=== PATIENT | male | born 1965 | race Caucasian/White ===

== ENCOUNTER 2021-11-13 18:29 | Emergency (ER) | payer BC, SELFPAY ==
[2021-11-13 18:31] VITALS: BP 140/70; PULSE 85; RESP 16; TEMP 36.8; O2SAT 100; BMI 28.5
--- NOTE | 2021-11-13 18:39 | XR_ITS ---
PROCEDURE INFORMATION: Exam: XR Left Foot Exam date and time: 11/13/2021 6:38 PM Age: 56 years old Clinical indication: Pain; Foot; Left; Additional info: Pain; [place] foot pop last ngiht TECHNIQUE: Imaging protocol: XR Left foot. Views: 3 or more views. Total images: 3 COMPARISON: No relevant prior studies available. FINDINGS: Bones/joints: Transverse fracture of the proximal metaphysis of the 5th metatarsal with about 2 mm displacement, located about 17 mm distal to the proximal styloid, concerning for a Colindres type fracture. Sclerosis and mild cortical contour irregularity with slight lateral bowing of the 4th metatarsal base suggests changes of old healed fracture in this region. Mild-moderate osteoarthritic changes in the 1st MTP joint with mild joint space narrowing and marginal spurring. Minor plantar calcaneal spurring. Soft tissues: Mild lateral soft tissue swelling. IMPRESSION: 1. Mildly displaced Colindres type fracture of the proximal 5th metatarsal. 2. Chronic appearing changes of old healed fracture in the proximal 4th metatarsal metadiaphysis. 3. Mild-moderate osteoarthritic changes in the 1st MTP joint.
[2021-11-13 18:57] VITALS: PULSE 85; RESP 16; TEMP 36.8; O2SAT 100; BMI 28.5
--- NOTE | 2021-11-13 19:09 | HMH.EDUTC ---
[facility] [place] Clinical Impression: Metatarsal bone fracture Qualifiers: Encounter type: initial encounter Metatarsal bone: fifth Fracture type: closed Fracture alignment: nondisplaced Laterality: left Qualified Code(s): S92.355A - Nondisplaced fracture of fifth metatarsal bone, left foot, initial encounter for closed fracture Disposition: Home, Self-Care Condition on Discharge: Good Instructions: How to Use Crutches, How To Perform RICE (Rest, Ice, Compress, Elevate), How to Use a Walking Boot Additional Instructions: *RICE, Rest the extremity, Ice 15-20 minutes 3-4 times daily, Compress- wear the zaire wrap as discussed as much as possible to help reduce swelling and pain, Elevate the extremity when at rest Use Crutches when getting up and walking around *Walking boot is for support and help control swelling, use it except in the shower. Be sure that is not to tight but not to loose either *Elevate when resting *Ibuprofen as directed on package every 6-8 hours as needed for pain an inflammation. If need something more can take Tylenol in between doses of Ibuprofen to help Immediately follow up with your family doctor for new or worsening of symptoms, or no noticeable improvement over the next 3-5 days Call Podiatry on Tuesday to make appointment Referrals: Provider,Referral, MD [Primary Care Provider] - As needed Brendon Francis DPM [Physician] - Jennifer Martinez APRN [Nurse Practitioner] - Mari Zimmerman DPM [Staff Physician] - Time of Disposition: 19:37 Medical Decision Making - Viktor Inquiry Pt receiving controlled substance: No Viktor was queried for this patient: No Vital Signs: 11/13/21 18:31 11/13/21 18:57 Temperature 98.3 F 98.3 F Temperature Source Oral Oral Pulse Rate [Right] 85 85 Respiratory Rate 16 16 Blood Pressure [Right Arm] 140/70 Blood Pressure Mean [Right Arm] 93 Blood Pressure Source [Right Arm] Automatic Cuff Blood Pressure Position [Right Arm] Sitting 02 Sat by Pulse Oximetry 100 100 Oxygen Delivery Method Room Air Orders (Tests/Meds): ORDERS Category Date Time Status Foot XR left minimum 3 views [XR foot LT min 3V] Stat Exams 11/13/21 18:39 Taken - Radiology Data #1 Image(s): Foot/Toes Image Reviewed: Yes I reviewed the patient's radiology image fracture base of 5th metatarsal - Physician Consults Physician Consulted: Dr Ely Time: 19:13 Reason -: Orthopedic Eval/Care Comment/Response: awaiting call back Spoke with Dr Ely and he advised to place in walking boot, crutches and can follow up with Podiatry [facility] [place] - General Stated complaint: left foot pain, no accident Time Seen by Provider: 11/13/21 19:10 Mode of Arrival: Ambulatory Source of Information: Patient Limitations: No Limitations Description of Symptoms (Recalled from Triage Doc. by RN): pt advises he was walking across the floor last night when he left foot popped and he has been having pain ever since. Advises he has broke that foot before almost in the same fashion HEENT Symptoms (Recalled from RN notes): No Resp Symptoms (Recalled from RN notes): No Skin Symptoms (Recalled from RN notes): No MS Symptoms (Recalled from RN notes): Yes Functional Status (Recalled from RN notes): wnl - History of Present Illness Provider Complaint: Patient states that he was walking across the kitchen floor last night when he felt a pop in the side of his left foot States that he immediately started having pain States that he did this a few years back and it was broken States that ever since he has been having pain and swelling in his foot and hurts when he walks on it - Related Data Allergies Allergy/AdvReac Type Severity Reaction Status Date / Time No Known Allergies Allergy Verified 11/13/21 18:39 - Worker's Comp Is this a Worker's Comp case?: No [facility] History - Hepatitis A Screen Drug use history?: No High risk sexual behaviors?: No History of sexually transmitted infection?: No Curren
[2021-11-13 19:42] VITALS: BP 140/70; PULSE 85; RESP 16; TEMP 36.8
== END 2021-11-13 19:42 | disposition home or self-care (01) ==
LOC: ER 18:43 → UTC 18:44
PROVIDERS: Emergency Provider Nurse Practitioner
DX: S92.355A Nondisplaced fracture of fifth metatarsal bone, left foot, initial encounter for closed fracture (principal); W01.0XXA Fall on same level from slipping, tripping and stumbling without subsequent striking against object, initial encounter
CPT/HCPCS: 29515; 73630; 99212; G0463

== ENCOUNTER → 2021-11-17 08:58 | Outpatient (CLI) | payer BC, SELFPAY ==
--- NOTE | 2021-11-17 09:17 | CT_ITS ---
FINAL REPORT CLINICAL HISTORY: fracture evaluation, surgical planning FINDINGS: CT LEFT FOOT WITHOUT CONTRAST Technique: Axial images through the left foot were performed by computed tomography. Sagittal and coronal reconstruction images were performed. This study was performed with techniques to keep radiation doses as low as reasonably achievable (ALARA). Individualized dose reduction techniques using automated exposure control or adjustment of mA and/or kV according to the patient's size were employed. There is a transverse fracture through the base of the 5th metatarsal. There is no intra-articular extension. There is old healed fracture deformity of the base of the 4th metatarsal. No dislocation identified. There are [id number] hypertrophic changes at the 1st MTP joint. There is soft tissue edema over the dorsum of the foot up to 1.5 cm. IMPRESSION: Transverse fracture through the base of the 5th metatarsal without intra-articular extension. Reviewed, Interpreted and Dictated by Steve Guadalupe MD Transcribed by Ramiro Zaidi Authenticated by Steve Guadalupe MD on 11/17/2021 02:13:16 PM [facility]
[2021-11-17 09:27] LABS: Basophils # 0.1 K/mm3 (0-0.2); Basophils % 0.6 % (0.1-2.0); Eosinophils # 0.1 K/mm3 (0.0-0.4); Eosinophils % 0.8 % (0.1-12.0); Hematocrit 44.1 % (42.0-52.0); Hemoglobin 14.8 g/dL (14.1-18.0); Lymphocytes # 1.5 K/mm3 (0.7-4.5); Lymphocytes % 17.2 % (10-50); Mean Corpuscular HGB Conc 33.6 g/dL (31.8-35.4); Mean Corpuscular Hemoglobin 30.1 pg (27.0-31.2); Mean Corpuscular Volume 89.7 fl (80-94); Mean Platelet Volume 7.6 fl (7.4-10.4); Monocytes # 0.5 K/mm3 (0.1-1.0); Neutrophils # 6.8 K/mm3 (1.8-7.8); Neutrophils % 76.4 % (37.0-80.0); Platelet Count 308 K/mm3 (142-424); Red Blood Count 4.91 M/mm3 (4.60-6.20); Red Cell Distribution Width 13.9 % (11.5-17.5); White Blood Count 8.9 K/mm3 (4.8-10.8)
[2021-11-17 09:57] LABS: Chloride 104 mmol/L (98-107); Sodium 138 mmol/L (136-145)
[2021-11-17 09:58] LABS: Potassium 4.7 mmoL/L (3.5-5.1)
[2021-11-17 10:00] LABS: Alanine Aminotransferase 27 U/L (12-78); Albumin Level 3.7 g/dl (3.5-5.0); Albumin/Globulin Ratio 1.6 (1.1-1.8); Alkaline Phosphatase 104 U/L (38-126); Anion Gap 9.7 mEq/L (5-15); Aspartate Amino Transferase 19 U/L (17-59); Bilirubin,Total 0.5 mg/dl (0.2-1.3); Blood Urea Nitrogen 13 mg/dl (9-20); Calcium 8.4 mg/dl (8.4-10.2); Carbon Dioxide 29 mmol/L (22.0-30.0); Estimated Glomerular Filt Rate 118 ml/min (>60); GFR (African American) 142 ML/MIN (>60); Globulin 2.3 g/dL (1.3-3.2); Glucose 324 mg/dl (74-100)
== END ==
PROVIDERS: PCP Pediatrics; Visit Provider Podiatrist
DX: S92.302A Fracture of unspecified metatarsal bone(s), left foot, initial encounter for closed fracture (principal); T14.8XXA Other injury of unspecified body region, initial encounter
CPT/HCPCS: 36415; 73700; 80053; 85025

== ENCOUNTER 2022-05-29 14:41 | Emergency (ER) | payer BC, SELFPAY ==
[2022-05-29] VITALS (10 sets, daily range): BP systolic 135–170; BP diastolic 67–83; PULSE 82–90; RESP 17–18; TEMP 36.7–36.8; O2SAT 94–98; BMI 25.1
--- NOTE | 2022-05-29 15:19 | PC.NURSE ---
ED MD AT BEDSIDE FOR EVALUATION
--- NOTE | 2022-05-29 15:22 | CT_ITS ---
PROCEDURE INFORMATION: Exam: CT Lumbar Spine Without Contrast Exam date and time: 05/29/2022 3:36 PM Age: 56 years old Clinical indication: Injury or trauma; Fall; Blunt trauma (contusions or hematomas); Additional info: Log fell on patient's back TECHNIQUE: Imaging protocol: Computed tomography of the lumbar spine without contrast. Radiation optimization: All CT scans at this facility use at least one of these dose optimization techniques: automated exposure control; mA and/or kV adjustment per patient size (includes targeted exams where dose is matched to clinical indication); or iterative reconstruction. COMPARISON: CT THORACIC SPINE WO CON 05/29/2022 3:32 PM FINDINGS: Tubes, catheters and devices: No marker has been placed indicate region of trauma. Bones/joints: Lumbar spondylosis. Soft tissues: Unremarkable. IMPRESSION: 1. No evidence of acute osseous injury in the lumbar spine. 2. Lumbar spondylosis.
--- NOTE | 2022-05-29 15:22 | CT_ITS ---
PROCEDURE INFORMATION: Exam: CT Chest With Contrast; Diagnostic Exam date and time: 05/29/2022 3:45 PM Age: 56 years old Clinical indication: Injury or trauma; Fall; Blunt trauma (contusions or hematomas); Additional info: Log fell on patient's back TECHNIQUE: Imaging protocol: Diagnostic computed tomography of the chest with contrast. Radiation optimization: All CT scans at this facility use at least one of these dose optimization techniques: automated exposure control; mA and/or kV adjustment per patient size (includes targeted exams where dose is matched to clinical indication); or iterative reconstruction. Contrast material: ISOVUE; Contrast volume: 70 ml; Contrast route: IV; COMPARISON: CT THORACIC SPINE WO CON 05/29/2022 3:32 PM FINDINGS: Thyroid: Mild prominence of the thyroid gland. No discrete nodule demonstrated. Lungs: Minimal regions of subsegmental atelectasis at the left lung base. Patchy regions of opacification in the lingula and left lung base. Pleural spaces: Unremarkable. No pneumothorax. No pleural effusion. Heart: Coronary artery calcification. Lymph nodes: Unremarkable. No enlarged lymph nodes. Vasculature: Unremarkable. No aortic aneurysm. Liver: Hepatic steatosis. Gallbladder and bile ducts: Cholelithiasis. Spleen: Mild splenomegaly. Bones/joints: Incomplete visualization of posterior spinal fusion at T1 and T2. Nondisplaced fracture left 7th, 8th and 9th ribs again demonstrated. Soft tissues: Unremarkable. Other findings: Please see CT thoracic spine report for further discussion. IMPRESSION: 1. Nondisplaced fracture left 7th, 8th and 9th ribs again demonstrated. 2. Minimal regions of subsegmental atelectasis left lung base. Superimposed patchy regions of opacification involving the lingula and left lung base.
--- NOTE | 2022-05-29 15:22 | CT_ITS ---
PROCEDURE INFORMATION: Exam: CT Thoracic Spine Without Contrast Exam date and time: 05/29/2022 3:32 PM Age: 56 years old Clinical indication: Injury or trauma; Fall; Blunt trauma (contusions or hematomas); Additional info: Log fell on patient's back TECHNIQUE: Imaging protocol: Computed tomography of the thoracic spine without contrast. Radiation optimization: All CT scans at this facility use at least one of these dose optimization techniques: automated exposure control; mA and/or kV adjustment per patient size (includes targeted exams where dose is matched to clinical indication); or iterative reconstruction. COMPARISON: No relevant prior studies available. FINDINGS: Bones/joints: Nondisplaced fracture left 7th, 8th and 9th ribs. Irregularity of the right T11-12 articular facet. Findings compatible with fracture. Irregularity of the right T12-L1 articulating facet. A fracture in this region is suggested. Soft tissues: Unremarkable. Other findings: Findings demonstrated on series 3, image number 111) . IMPRESSION: 1. Nondisplaced fracture left 7th, 8th and 9th ribs. 2. Irregularity of the right T11-12 articular facet. Findings compatible with fracture. 3. Irregularity of the right T12-L1 articulating facet. A fracture in this region is suggested.
--- NOTE | 2022-05-29 15:25 | HMH.EDGENADL ---
Discharge Plan Disposition Patient Disposition: Home, Self-Care Condition: Fair Prescriptions Prescriptions: New levofloxacin 500 mg tablet 500 mg PO DAILY 7 Days Qty: 7 0RF oxycodone-acetaminophen [Percocet] 5-325 mg tablet 1 tab PO Q6H PRN (Reason: pain) Qty: 20 0RF oxycodone 5 mg capsule 5 mg PO Q6H PRN (Reason: pain) Qty: 20 0RF No Action omeprazole 20 mg capsule,delayed release(DR/EC) 20 mg PO Trulicity 3 mg/0.5 mL pen injector SQ Humulin 70/30 U-100 KwikPen 100 unit/mL (70-30) insulin pen SQ Referrals Follow up/Referrals: Provider,Referral, MD [Primary Care Provider] - See instructions Activity Restrictions/Add. Instructions Additional Instructions/Restrictions: Oxycodone as needed for pain. Antibiotic, Levaquin, as prescribed. Fill your prescription for Trulicity on Tuesday and begin taking. Follow-up with your primary care provider next week, call Tuesday to make appointment. Additional instructions for RIB INJURIES: See your physician as soon as possible for further evaluation. Hold a pillow against your injured ribs to help with pain when coughing or sneezing. Sleep with several pillows to help support you in the most comfortable position. Take deep breaths frequently. Use incentive spirometer 4-5 times a day. Return immediately if shortness of breath, intolerable pain, coughing of blood, abdominal pain or vomiting. Additional instructions for PNEUMONIA: Take antibiotics as prescribed. See your physician as soon as possible for further evaluation. Return immediately if you have an uncontrollable fever greater than 102 degrees, difficulty breathing or shortness of breath, persistent vomiting, or severe chest pain. Additional instructions for CONTROLLED SUBSTANCES: You have been prescribed a medication that is a controlled substance. Controlled substances include pain medications known as opiates and sedative nerve medications known as benzodiazepines. Tramadol, fioricet, and gabapentin are also controlled substances. Some common opiates include: Codeine (such as Tylenol #3) Hydrocodone (Vicodin, Lortab, Lorcet, [place]) Oxycodone (Percocet, Percodan, Oxycodone, Oxy IR) Some common benzodiazepines include: Diazepam (Valium) Lorazepam (Ativan) Alprazolam (Xanax) Clonazepam (Klonopin) Oxazepam (Serax) All of these controlled substances are highly addictive and frequently abused. Misuse can and frequently does lead to addiction as well as overdose and . Medication should be stored in a locked cabinet or other secure storage unit. Do not store the medication in a motor vehicle. Short term supplies, 3 days or less, are prescribed because of the highly addictive nature of the medication. Any of the controlled substance medication NOT taken should be disposed of properly and NOT SAVED. The recommended method of disposing of unused medications is: Place the medicines in a sealable plastic bag. If the medicine is a solid, crush it or add water to dissolve it. Add something undesirable (cat litter, coffee grounds, etc.) Dispose of sealed bag in household trash Do not flush or pour unused medicines down a sink or drain. Controlled substances should not be shared, given away or sold. Because of the addictive nature and frequent abuse, these medications are sometimes stolen. These medications should be kept in a safe place where they cannot be stolen. Do not keep them in your car or purse. Lost or stolen prescriptions for controlled substances WILL NOT BE REFILLED in this emergency department, regardless of whether a police report was filed. Clinical Impressions Clinical Impression: Multiple fractures of ribs, Thoracic vertebral fracture, Acute hyperglycemia, Pneumonia Instructions Patient Instructions: DI for Vertebral Fracture, DI for Rib Fracture, DI for Hyperglycemia -- Adult, DI for Pneumonia -- Adult
--- NOTE | 2022-05-29 15:29 | PC.NURSE ---
PT TO CT AT THIS TIME
[2022-05-29 15:36] LABS: Basophils # 0.1 K/mm3 (0-0.2); Basophils % 0.5 % (0.1-2.0); Eosinophils # 0.1 K/mm3 (0.0-0.4); Eosinophils % 0.5 % (0.1-12.0); Hematocrit 41.4 % (42.0-52.0); Hemoglobin 13.9 g/dL (14.1-18.0); Lymphocytes # 0.9 K/mm3 (0.7-4.5); Lymphocytes % 8.7 % (10-50); Mean Corpuscular HGB Conc 33.6 g/dL (31.8-35.4); Mean Corpuscular Hemoglobin 31.2 pg (27.0-31.2); Mean Corpuscular Volume 92.8 fl (80-94); Mean Platelet Volume 8.5 fl (7.4-10.4); Monocytes # 0.5 K/mm3 (0.1-1.0); Neutrophils # 8.4 K/mm3 (1.8-7.8); Neutrophils % 85.4 % (37.0-80.0); Platelet Count 198 K/mm3 (142-424); Red Blood Count 4.46 M/mm3 (4.60-6.20); White Blood Count 9.8 K/mm3 (4.8-10.8)
[2022-05-29 15:38] LABS: MANUAL DIFFERENTIAL MANUAL DIFFERENTIAL (MANUAL DIFF)
[2022-05-29 15:39] LABS: Chloride 96 mmol/L (98-107); Potassium 4.6 mmoL/L (3.5-5.1); Sodium 130 mmol/L (136-145)
[2022-05-29 15:42] LABS: Anion Gap 15.6 mEq/L (5-15); Blood Urea Nitrogen 22 mg/dl (9-20); Calcium 8.1 mg/dl (8.4-10.2); Carbon Dioxide 23 mmol/L (22.0-30.0); Creatinine Clearance Estimated 105 mL/min (50-200); Estimated Glomerular Filt Rate 88 ml/min (>60); GFR (African American) 106 ML/MIN (>60)
[2022-05-29 15:52] LABS: Glucose 652 mg/dl (74-100)
--- NOTE | 2022-05-29 15:52 | PC.NURSE ---
notified of glucose of 652
--- NOTE | 2022-05-29 15:57 | PC.NURSE ---
PT RETURNED FROM CT AT THIS TIME
--- NOTE | 2022-05-29 15:58 | PC.NURSE ---
PT ASSISTED TO BR
--- NOTE | 2022-05-29 16:13 | PC.NURSE ---
PT MEDICATED PER EMAR, WARM BLANKET PROVIDED. FAMILY AT BEDSIDE
[2022-05-29 16:20] LABS: Lymphocytes % 6 % (10-50); Monocytes % 6 % (2-9); Neutrophils % 88 % (42-76); Tear Drop Cells 1+; Total Cells Counted 100
[2022-05-29 16:21] LABS: Platelet Estimate Normal
--- NOTE | 2022-05-29 16:45 | PC.NURSE ---
ROUNDED ON PT AT THIS TIME, FAMILY AT BEDSIDE
--- NOTE | 2022-05-29 17:20 | PC.NURSE ---
PT SITTING ON SIDE OF BED TALKING ON PHONE, NO NEEDS AT THIS TIME. FAMILY AT BEDSIDE
--- NOTE | 2022-05-29 17:55 | PC.NURSE ---
DIABETIC SUPPER TRAY ORDERED AT THIS TIME
--- NOTE | 2022-05-29 17:58 | PC.NURSE ---
FSBS 368
[2022-05-29 18:03] LABS: POC Glucose,Bedside 368 (70-110)
--- NOTE | 2022-05-29 18:26 | PC.NURSE ---
DR. ACUÑA AT BEDSIDE TO REEVALUATE PT
--- NOTE | 2022-05-29 18:47 | PC.NURSE ---
SUPPER TRAY SET-UP AT THIS TIME
--- NOTE | 2022-05-29 19:05 | PC.NURSE ---
PT GIVEN INCENTIVE SPIROMETER AND PROPER USAGE DEMONSTRATED
== END 2022-05-29 19:20 | disposition home or self-care (01) ==
PROVIDERS: Emergency Provider Emergency Medicine
DX: S22.42XA Multiple fractures of ribs, left side, initial encounter for closed fracture (principal); S22.089A Unspecified fracture of T11-T12 vertebra, initial encounter for closed fracture; M54.9 Dorsalgia, unspecified; R20.2 Paresthesia of skin; E11.65 Type 2 diabetes mellitus with hyperglycemia; R16.1 Splenomegaly, not elsewhere classified; M47.896 Other spondylosis, lumbar region; K76.0 Fatty (change of) liver, not elsewhere classified; K80.20 Calculus of gallbladder without cholecystitis without obstruction; F17.210 Nicotine dependence, cigarettes, uncomplicated; Z79.4 Long term (current) use of insulin; Z79.899 Other long term (current) drug therapy; Z98.1 Arthrodesis status; Z87.01 Personal history of pneumonia (recurrent); W20.8XXA Other cause of strike by thrown, projected or falling object, initial encounter
CPT/HCPCS: 71260; 72128; 72131; 80048; 82962; 85007; 85025; 96361; 96374; 96375; 96376; 99285; J1956; J2405

== ENCOUNTER 2022-12-21 21:18 | Emergency (ER) | payer BC, SELFPAY ==
[2022-12-21 21:18] VITALS: BP 104/61; PULSE 97; RESP 16; TEMP 37.2; O2SAT 98; BMI 23.6
[2022-12-21 21:22] VITALS: BMI 23.6
--- NOTE | 2022-12-21 21:23 | XR_ITS ---
PROCEDURE INFORMATION: Exam: XR Chest Exam date and time: 12/21/2022 9:22 PM Age: 57 years old Clinical indication: Other: N/v/d TECHNIQUE: Imaging protocol: Radiologic exam of the chest. Views: 2 views. COMPARISON: CT CHEST W CON 05/29/2022 3:45 PM FINDINGS: Lungs: Unremarkable. No consolidation. Pleural spaces: Unremarkable. No pleural effusion. No pneumothorax. Heart/Mediastinum: Unremarkable. No cardiomegaly. Bones/joints: Partially visualized posterior cervical spinal fusion hardware. Mild multilevel degenerative disc disease of the thoracic spine. IMPRESSION: No acute abnormality.
--- NOTE | 2022-12-21 21:30 | PC.NURSE ---
Pt gone to RAD via wheelchair
--- NOTE | 2022-12-21 21:30 | HMH.EDNVD ---
Discharge Plan Disposition Patient Disposition: Home, Self-Care Chief Complaint: Nausea/Vomiting/Diarrhea Prescriptions Prescriptions: No Action Humulin 70/30 U-100 KwikPen 100 unit/mL (70-30) insulin pen 30 unit SQ DAILY Referrals Follow up/Referrals: Kenyetta Astorga MD [Primary Care Provider] - See instructions Clinical Impressions Clinical Impression: Diabetes mellitus, insulin dependent (IDDM), uncontrolled, Enteritis, Renal insufficiency Instructions Patient Instructions: DI for Diarrhea and Traveler's Diarrhea -- Adult Discharge ED Provider: Suleiman (ED)Eladio Nausea/Vomiting/Diarrhea HPI General Chief complaint: Nausea/Vomiting/Diarrhea Stated complaint: N/V/D Hyperglycemic Time Seen by Provider: 12/21/22 21:30 Mode of Arrival: EMS Source of Information: Patient, EMS and Medical Record Limitations: No Limitations Description of Symptoms (Recalled from ER Triage Doc. by RN): pt c/o n/v/d and elevated FSBS, lower back pain since 1am this morning. pt denies any abd pain History of Present Illness HPI Narrative: pt with onset of vomiting and watery diarrhea about 24 hrs ago - no fever or abd pain - hx of iddm complaint: nausea, vomiting, diarrhea and abdominal pain Onset (ago): hour(s) Description of Vomiting: watery Associated Abdominal Pain: No Associated symptoms: denies other symptoms Related Data Home Medications Medication Instructions Recorded Confirmed insulin NPH-regular 70-30 U-100 30 unit SQ DAILY Diabetes 11/17/21 12/21/22 insulin 100 unit/mL subcutaneous pen (Humulin 70/30 U-100 KwikPen) Allergies Allergy/AdvReac Type Severity Reaction Status Date / Time No Known Allergies Allergy Verified 11/17/21 10:28 [facility] Disclaimer: The information contained in this section may have been updated after the patient was seen, as this information can be updated by other users. Medical History (Updated 12/21/22 @ 23:59 by Eladio Bearden (ED)MD) Diabetes Social History (Updated 05/29/22 @ 17:32 by Disha Aviles RN) Smoking Status: Never smoker alcohol intake: current current occupational status: employed Travel in the last 8 weeks: None ROS Obtained: Yes All systems reviewed & no additional complaints except as documented Physical Exam General General appearance: alert Head Head exam: normocephalic Eye Eye exam: Present PERRL and EOMI ENT ENT exam: Present mucous membranes moist Neck Neck exam: Present trachea midline Respiratory Respiratory exam: Present normal lung sounds bilaterally; Absent respiratory distress Cardiovascular Cardiovascular exam: Present regular rate Abdominal Exam Abdominal exam: Present soft; Absent tenderness, guarding or rebound Extremities Exam Extremities exam: Present full ROM Neurological Exam Neurological exam: Present alert, oriented X3 and CN II-XII intact; Absent motor sensory deficit Psychiatric Psychiatric exam: Present normal affect Skin Skin exam: Absent rash Medical Decision Making Medical Records Medical records reviewed: Yes I reviewed the patient's medical records. Viktor Inquiry Pt receiving controlled substance: No Vital Signs: 12/21/22 21:18 12/21/22 21:45 Temperature 99.0 F Temperature Source Oral Pulse Rate 94 H Pulse Rate [Right] 97 H Respiratory Rate 16 Blood Pressure 118/58 L Blood Pressure [Right Arm] 104/61 L Blood Pressure Mean [Right Arm] 75 02 Sat by Pulse Oximetry 98 97 Lab Data Lab results reviewed: Yes I reviewed the patient's lab results. Lab Results 12/21/22 21:19: WBC 12.2 H, RBC 5.98, Hgb 17.4, Hct 53.2 H, MCV 89.0, MCH 29.1, MCHC 32.6, RDW 13.3, Plt Count 233, MPV 8.6, Neut % (Auto) 87.5 H, Lymph % (Auto) 8.2 L, [place] % (Auto) 3.8, Eos % (Auto) 0.3, Baso % (Auto) 0.2, Neut # (Auto) 10.7 H, Lymph # (Auto) 1.0, [place] # (Auto) 0.5, Eos # (Auto) 0.0, Baso # (Auto) 0.0, Total Counted 100, Neutrophils % (Manual) 90 H, Lymphocytes % (Manual) 9 L, Monocytes
[2022-12-21 21:32] LABS: POC Glucose,Bedside 436 (70-110)
[2022-12-21 21:32] LABS: Basophils % 0.2 % (0.1-2.0); Eosinophils % 0.3 % (0.1-12.0); Hematocrit 53.2 % (42.0-52.0); Hemoglobin 17.4 g/dL (14.1-18.0); Lymphocytes % 8.2 % (10-50); Mean Corpuscular HGB Conc 32.6 g/dL (31.8-35.4); Mean Corpuscular Hemoglobin 29.1 pg (27.0-31.2); Mean Platelet Volume 8.6 fl (7.4-10.4); Monocytes # 0.5 K/mm3 (0.1-1.0); Monocytes % 3.8 % (1.7-9.3); Neutrophils # 10.7 K/mm3 (1.8-7.8); Neutrophils % 87.5 % (37.0-80.0); Platelet Count 233 K/mm3 (142-424); Red Blood Count 5.98 M/mm3 (4.60-6.20); Red Cell Distribution Width 13.3 % (11.5-17.5); White Blood Count 12.2 K/mm3 (4.8-10.8)
--- NOTE | 2022-12-21 21:34 | PC.NURSE ---
Pt back from RAD
[2022-12-21 21:35] LABS: MANUAL DIFFERENTIAL MANUAL DIFFERENTIAL (MANUAL DIFF)
--- NOTE | 2022-12-21 21:36 | PC.NURSE ---
DR PACHECO NOTIFED OF CRITICAL FS [id number]
[2022-12-21 21:38] LABS: Acetone, Serum (Rapid) None Detected (None Detect)
[2022-12-21 21:41] LABS: Alanine Aminotransferase 29 U/L (12-78); Albumin Level 4.4 g/dl (3.5-5.0); Albumin/Globulin Ratio 1.6 (1.1-1.8); Alkaline Phosphatase 104 U/L (38-126); Amylase 71 U/L (30-110); Anion Gap 23.7 mEq/L (5-15); Aspartate Amino Transferase 23 U/L (17-59); Bilirubin,Total 1.1 mg/dl (0.2-1.3); Blood Urea Nitrogen 47 mg/dl (9-20); Calcium 8.9 mg/dl (8.4-10.2); Carbon Dioxide 17 mmol/L (22.0-30.0); Chloride 98 mmol/L (98-107); Creatinine Clearance Estimated 63 mL/min (50-200); Estimated Glomerular Filt Rate 53 ml/min (>60); GFR (African American) 64 ML/MIN (>60); Globulin 2.7 g/dL (1.3-3.2); Potassium 4.7 mmoL/L (3.5-5.1); Sodium 134 mmol/L (136-145); Total Protein,Serum 7.1 g/dl (6.3-8.2)
[2022-12-21 21:45] VITALS: BP 118/58; PULSE 94; O2SAT 97
[2022-12-21 21:47] LABS: C-Reactive Protein 28.2 mg/L (0-4); Glucose 466 mg/dl (74-100)
--- NOTE | 2022-12-21 21:47 | PC.NURSE ---
notified dominguez of critical glucose 466
[2022-12-21 21:50] LABS: Coronavirus 19, PCR Not Detected (NotDetected); Influenza A, PCR Not Detected (NotDetected); Influenza B, PCR Not Detected (NotDetected)
[2022-12-21 21:55] LABS: Lymphocytes % 9 % (10-50); Monocytes % 1 % (2-9); Neutrophils % 90 % (42-76); Platelet Estimate Normal; RBC Morphology Normal; Total Cells Counted 100
[2022-12-21 22:00] LABS: Procalcitonin 0.873 ng/mL (0.0-2.0)
[2022-12-21 22:02] LABS: Erythrocyte Sedimentation Rate 11 mm/hr (0-20)
[2022-12-21 22:25] LABS: Lipase 46 U/L (23-300)
[2022-12-21 23:00] LABS: POC Glucose,Bedside 382 (70-110)
[2022-12-21 23:52] VITALS: BP 118/56; PULSE 90; RESP 16; TEMP 37.1; O2SAT 97
== END 2022-12-22 00:03 | disposition home or self-care (01) ==
PROVIDERS: Emergency Provider Emergency Medicine; PCP Pediatrics
DX: E11.65 Type 2 diabetes mellitus with hyperglycemia (principal); K52.9 Noninfective gastroenteritis and colitis, unspecified; N28.9 Disorder of kidney and ureter, unspecified
CPT/HCPCS: 71046; 80053; 82009; 82150; 82962; 83690; 84145; 85007; 85025; 85651; 86140; 87635; 87636; 96361; 96374; 96375; 99284; 99285; C9803; J2405; U0003; U0005

== ENCOUNTER 2023-08-13 16:32 | Emergency (ER) | payer BC, SELFPAY ==
[2023-08-13 17:50] VITALS: BP 140/86; PULSE 82; RESP 19; TEMP 36.9; O2SAT 98; BMI 26.6
[2023-08-13 18:05] VITALS: BP 140/86; PULSE 82; RESP 19; TEMP 36.9; O2SAT 98
--- NOTE | 2023-08-13 18:15 | ED_ITS ---
Discharge Plan Disposition Patient Disposition: Home, Self-Care Condition: Good Prescriptions Prescriptions: New benzonatate 100 mg capsule 100 mg PO TID PRN (Reason: cough) Qty: 30 0RF No Action Humulin 70/30 U-100 KwikPen 100 unit/mL (70-30) insulin pen 30 unit SQ DAILY Referrals Follow up/Referrals: Kenyetta Astorga MD [Primary Care Provider] - See instructions Activity Restrictions/Add. Instructions Additional Instructions/Restrictions: *Monitor Temp, Over the counter Motrin or Tylenol as directed/as needed Tylenol every 4 hours and Motrin every 6 hours (as long as your family doctor has told you that you can take it) for fever or pain. and straight to ER if unable to lower temp less than 101.0 after medication given *Humidifier/Vaporizer Follow up IMMEDIATELY for new or worsening symptoms or no Noticeable improvement over the next 48-72 hours. 911 for difficulty breathing or swallowing You were tested for today for COVID19 your test result should be back in the next 24-48 hours, you may check your results on the [facility] if your COVID or Influenza is positive you must Quarantine for 5 days Clinical Impressions Clinical Impression: Exposure to COVID-19 virus Stand Alone Forms Stand Alone Forms: Work/School Release Instructions Patient Instructions: Cough Discharge ED Provider: Heidi Dawson [facility] HPI General Stated complaint: congestion,cough Mode of Arrival: Ambulatory Source of Information: Patient Limitations: No Limitations Time Seen by Provider: 08/13/23 18:15 Description of Symptoms (Recalled from Triage Doc. by RN): PATIENT C/O COUGH AND CONGESTION X 1 WEEK. RECENTLY EXPOSED TO COVID HEENT Symptoms (Recalled from RN notes): Yes Resp Symptoms (Recalled from RN notes): Yes Skin Symptoms (Recalled from RN notes): No MS Symptoms (Recalled from RN notes): No Functional Status (Recalled from RN notes): WNL History of Present Illness Provider Complaint: Patient states that he has been having dry cough and nasal congestion for about a week States that his got sick and he brought her to the ER and she just tested positive for COVID States that he wanted to get tested for COVID to make sure that he doesnt have it but he is not having the same symptoms like she is Related Data Home Medications Medication Instructions Recorded Confirmed insulin NPH-regular 70-30 U-100 30 unit SQ DAILY Diabetes 11/17/21 12/21/22 insulin 100 unit/mL subcutaneous pen (Humulin 70/30 U-100 KwikPen) Previous Rx's Medication Instructions Recorded benzonatate 100 mg capsule 100 mg PO TID PRN cough #30 caps 08/13/23 Allergies Allergy/AdvReac Type Severity Reaction Status Date / Time No Known Allergies Allergy Verified 11/17/21 10:28 Worker's Comp Is this a Worker's Comp case?: No [facility] Disclaimer: The information contained in this section may have been updated after the patient was seen, as this information can be updated by other users. Medical History (Updated 08/13/23 @ 18:23 by Heidi Dawson APRN) Diabetes Social History (Updated 05/29/22 @ 17:32 by Disha Aviles RN) Smoking Status: Never smoker alcohol intake: current current occupational status: employed Travel in the last 8 weeks: None ROS Obtained: Yes All systems reviewed & no additional complaints except as documented and Yes Systems reviewed as appropriate & no additional complaints except as documented Constitutional Constitutional: Reports system reviewed and no additional complaints, except as documented, Reports as per HPI, Denies chills, Denies fatigue, Denies fever(s) and Denies headache(s) ENT Ears, Nose, Mouth, and Throat: Reports system reviewed and no additional complaints, except as documented, Reports as per HPI, Denies headache(s) and Reports nasal congestion Cardiovascular Cardiovascular: Reports system reviewed and no additional complaints, except as documented, Reports as per HPI and Denies dyspnea Respiratory Respiratory: Reports system reviewed and no additional complaints, except as documented, Reports as per HPI, Denies shortness of breath, Reports cough (dry cough) and Denies dyspnea Gastrointestinal Gastrointestingal: Reports system reviewed and no additional complaints, except as documented and as per HPI Neurologic Neurologic: Denies headache(s) Endocrine Endocrine: Denies fatigue Physical Exam General General appearance: alert and in no apparent distress ENT ENT exam: Present mucous membranes moist Chest Chest inspection: Present normal inspection and symmetric chest wall rise; Absent tenderness Respiratory Respiratory exam: Present normal lung sounds bilaterally; Absent respiratory distress or wheezes Cardiovascular Cardiovascular exam: Present regular rate, normal rhythm and normal heart sounds Abdominal Exam Abdominal exam: Present soft and normal bowel sounds; Absent distention or tenderness Neurological Exam Neurological exam: Present alert, oriented X3 and normal gait Medical Decision Making Viktor Inquiry Pt receiving controlled substance: No Viktor was queried for this patient: No Vital Signs: 08/13/23 17:50 08/13/23 18:05 Temperature 98.4 F 98.4 F Temperature Source Oral Pulse Rate 82 Pulse Rate [Right Brachial] 82 Respiratory Rate 19 19 Blood Pressure 140/86 Blood Pressure [Right Arm] 140/86 Blood Pressure Mean [Right Arm] 104 Blood Pressure Source [Right Arm] Automatic Cuff Blood Pressure Position [Right Arm] Sitting 02 Sat by Pulse Oximetry 98 Oxygen Delivery Method Room Air Orders (Tests/Meds): ORDERS Category Date Time Status Covid-19 Nasal PCR ([facility]) Routine Lab 08/13/23 17:50 Received
== END 2023-08-13 18:32 | disposition home or self-care (01) ==
PROVIDERS: Emergency Provider Nurse Practitioner; PCP Pediatrics
DX: U07.1 COVID-19 (principal); R05.9 Cough, unspecified; R09.81 Nasal congestion; E11.9 Type 2 diabetes mellitus without complications; Z79.4 Long term (current) use of insulin
CPT/HCPCS: 87635; 99212; 99214; G0463